=== PATIENT | male | born 1990 ===

== ENCOUNTER 2018-05-16 12:01 | Outpatient (CLI) | payer OTHER ==
[~2018-05-16] VITALS: Ht 170.2 cm; Wt 68.0 kg
== END 2018-05-16 12:15 | disposition home or self-care (01) ==
LOC: OFIC 805 12:01
DX: J03.80 Acute tonsillitis due to other specified organisms (principal)

== ENCOUNTER 2018-05-23 14:29 | Outpatient (CLI) | payer OTHER ==
[~2018-05-23] VITALS: Ht 152.4 cm; Wt 68.0 kg
== END 2018-05-23 14:45 | disposition home or self-care (01) ==
LOC: OFIC 805 14:29
DX: J03.80 Acute tonsillitis due to other specified organisms (principal)

== ENCOUNTER 2018-05-23 15:57 | Outpatient (CLI) | payer OTHER | END 2018-05-23 16:15 | disposition home or self-care (01) | LOC: LAB 15:57 | DX: J03.81 Acute recurrent tonsillitis due to other specified organisms (principal) ==

== ENCOUNTER 2018-05-26 12:38 | Outpatient (CLI) | payer OTHER ==
[~2018-05-26] VITALS: Ht 152.4 cm; Wt 68.0 kg
== END 2018-05-26 13:00 | disposition home or self-care (01) ==
LOC: OFIC 805 12:38
DX: J03.80 Acute tonsillitis due to other specified organisms (principal)

== ENCOUNTER 2018-07-11 10:39 | Outpatient (CLI) | payer OTHER ==
[~2018-07-11] VITALS: Ht 152.4 cm; Wt 68.0 kg
== END 2018-07-11 10:55 | disposition home or self-care (01) ==
LOC: OFIC 805 10:39
DX: J03.80 Acute tonsillitis due to other specified organisms (principal)

== ENCOUNTER 2018-09-22 10:00 | Outpatient (CLI) | payer OTHER ==
[~2018-09-22] VITALS: Ht 152.4 cm; Wt 68.0 kg
== END 2018-09-22 10:15 | disposition home or self-care (01) ==
LOC: OFIC 805 10:00
DX: J03.80 Acute tonsillitis due to other specified organisms (principal)